=== PATIENT | male | born 1975 | race African-American/Black ===

== ENCOUNTER 2016-09-19 05:36 | Emergency (ER) | payer SELFPAY ==
[~2016-09-19] VITALS: Ht 193 cm; Wt 112.0 kg
[~2016-09-19 05:36] MED LIST: AUGM875T PO
[2016-09-19 05:39] VITALS: BP 153/93; PULSE 80; RESP 16; TEMP 98.2; O2SAT 97
[2016-09-19] MEDS ORDERED: HYDR-3535 PO (05:50)
[2016-09-19] MEDS ORDERED: SODIUM CHLOR 0.9% 1000 ML INJ 1,000 ML IV SCH (06:24)
[2016-09-19] MEDS ORDERED: SODIUM CHLORIDE 0.9% FLUSH 10 ML FLUSH IV FLUSH PRN (06:30)
[2016-09-19 06:46] LABS: AUTOMATED NEUTROPHIL # 6.8 TH/MM3 (1.8-7.7); BASOPHIL # 0.1 TH/MM3 (0-0.2); BASOPHIL % 0.9 % (0.0-2.0); EOSINOPHIL # 0.3 TH/MM3 (0-0.4); EOSINOPHIL % 2.7 % (0.0-4.0); HEMATOCRIT 40.4 % (39.0-51.0); HEMO FLAGS DIFF FINAL; LYMPH % 20.7 % (9.0-44.0); LYMPHOCYTE # 2.2 TH/MM3 (1.0-4.8); MEAN CELL VOLUME 74.9 FL (80.0-100.0); MEAN CORPUSCULAR HEMOGLOBIN 23.6 PG (27.0-34.0); MEAN CORPUSCULAR HGB CONC 31.5 % (32.0-36.0); MONO % 12.7 % (0.0-8.0); PLATELET COUNT 251 TH/MM3 (150-450); RED CELL DISTRIBUTION WIDTH 14.7 % (11.6-17.2); WHITE BLOOD COUNT 10.8 TH/MM3 (4.0-11.0)
[2016-09-19 06:50] LABS: BLOOD, URINE NEG (NEG); COMMENT (UR) CULT NOT INDICATED; CULTURE IF INDICATED CULT NOT INDICATED; GLUCOSE,URINE NEG (NEG); KETONE, URINE NEG (NEG); MUCUS URINE FEW /lpf (OCC); NITRITE,URINE NEG (NEG); PH, URINE 5.5 (5.0-8.5); SQUAMOUS EPITHELIAL CELL URINE <1 /hpf (0-5); URINE COLOR YELLOW (YELLW/STRAW)
--- NOTE | 2016-09-19 06:50 | PD ---
HPI Chief Complaint: Abdominal Pain Time Seen by Provider: 06:24 Travel History International Travel<30 days: No Contact w/Intl Traveler<30days: No Traveled to known affect area: No History of Present Illness HPI Patient is a 41-year-old male who presents to emergency with complaints of cramping and diarrhea. Reports that he has not been feeling well since yesterday, reports that his is sick with similar symptoms. Patient reports that he woke up around 2 AM this morning and had multiple episodes of diarrhea. Patient was concerned as he had bouts of bloody diarrhea - reports blood as bright red. Patient denies any history of colitis, diverticulitis in the past. Patient currently denies any medical problems, currently are not any anticoagulants. Patient reports no recent travels, doesn't know if he at anything that could have caused him to be sick. Patient with no fevers or chills. No chest pain or shortness breath at this time. PFSH Past Medical History Blood Disorders: No Endocrine: No Gastrointestinal Disorders: No Genitourinary: No Hypertension: Yes Immune Disorder: No Implanted Vascular Access Dvce: No Musculoskeletal: No Neurologic: No Psychiatric: Yes Reproductive: No Respiratory: No Past Surgical History Surgical History: No Previous Surgery Other Surgery: No Social History Alcohol Use: Yes (OCCASSIONAL EVERY OTHER DAY OR SO..) Tobacco Use: Yes (1/2 PPD) Substance Use: No Allergies-Medications (Allergen,Severity, Reaction): Coded Allergies: Morphine (Verified Allergy, Severe, 09/19/16) Reported Meds & Prescriptions Reported Meds & Active Scripts Active Reported Lortab (Hydrocodone-Acetaminophen) 10-325 Mg Tab 1 Tab PO Q6H PRN Review of Systems General / Constitutional: No: Fever Eyes: No: Visual changes HENT: No: Headaches Cardiovascular: No: Chest Pain or Discomfort Respiratory: No: Shortness of Breath Gastrointestinal: Positive: Diarrhea, Abdominal Pain, Hematochezia, No: Nausea Genitourinary: No: Dysuria Musculoskeletal: No: Pain Skin: No Rash Neurologic: No: Weakness Psychiatric: No: Depression Endocrine: No: Polydipsia Hematologic/Lymphatic: No: Easy Bruising Physical Exam Narrative GENERAL: NAD, Nontoxic SKIN: Focused skin assessment warm/dry. HEAD: Atraumatic. Normocephalic. EYES: Pupils equal and round. No scleral icterus. No injection or drainage. ENT: No nasal bleeding or discharge. Mucous membranes pink and moist. NECK: Trachea midline. No JVD. CARDIOVASCULAR: Regular rate and rhythm. No murmur appreciated. RESPIRATORY: No accessory muscle use. Clear to auscultation. Breath sounds equal bilaterally. GASTROINTESTINAL: Abdomen soft, non-tender, nondistended. Hepatic and splenic margins not palpable. Rectal exam performed with RN at bedside, patient with light brown, heme negative stool MUSCULOSKELETAL: No obvious deformities. No clubbing. No cyanosis. No edema. NEUROLOGICAL: Awake and alert. No obvious cranial nerve deficits. Motor grossly within normal limits. Normal speech. PSYCHIATRIC: Appropriate mood and affect; insight and judgment normal. Data Data Last Documented VS Vital Signs Date Time Temp Pulse Resp B/P Pulse Ox O2 Delivery O2 Flow Rate FiO2 09/19/16 05:39 98.2 80 16 153/93 97 Orders Complete Blood Count With Diff (09/19/16 06:24) Comprehensive Metabolic Panel (09/19/16 06:24) Lipase (09/19/16 06:24) Prothrombin Time / Inr (Pt) (09/19/16 06:24) Act Partial Throm Time (Ptt) (09/19/16 06:24) Urinalysis - C+S If Indicated (09/19/16 06:24) Iv Access Insert/Monitor (09/19/16 06:24) Sodium Chlor 0.9% 1000 Ml Inj (Ns 1000 M (09/19/16 06:24) Sodium Chloride 0.9% Flush (Ns Flush) (09/19/16 06:30) Sodium Chlor 0.9% 1000 Ml Inj (Ns 1000 M (09/19/16 07:00) Labs Laboratory Tests Test 09/19/16 06:32 White Blood Count 10.8 TH/MM3 Red Blood Count 5.40 MIL/MM3 Hemoglobin 12.7 GM/DL Hematocrit 40.4 % Mean Corpuscular Volume 74.9 FL Mean Corpuscular Hemoglobin 23.6 PG Mean Corpuscular Hemoglobin 31.5 % Concent Red Cell Distribution Width 14.7 % Platelet Count 251 TH/MM3 Mean Platelet Volume 7.7 FL Neutrophils (%) (Auto) 63.0 % Lymphocytes (%) (Auto) 20.7 % Monocytes (%) (Auto) 12.7 % Eosinophils (%) (Auto) 2.7 % Basophils (%) (Auto) 0.9 % Neutrophils # (Auto) 6.8 TH/MM3 Lymphocytes # (Auto) 2.2 TH/MM3 Monocytes # (Auto) 1.4 TH/MM3 Eosinophils # (Auto) 0.3 TH/MM3 Basophils # (Auto) 0.1 TH/MM3 CBC Comment DIFF FINAL Differential Comment Prothrombin Time 9.9 SEC Prothromb Time International 0.9 RATIO Ratio Activated Partial 29.6 SEC Thromboplast Time Urine Color YELLOW Urine Turbidity CLEAR Urine pH 5.5 Urine Specific [place] 1.025 Urine Protein TRACE mg/dL Urine Glucose (UA) NEG mg/dL Urine Ketones NEG mg/dL Urine Occult Blood NEG Urine Nitrite NEG Urine Bilirubin NEG Urine Urobilinogen LESS THAN 2.0 MG/DL Urine Leukocyte Esterase NEG Urine RBC LESS THAN 1 /hpf Urine WBC 1 /hpf Urine Squamous Epithelial <1 /hpf Cells Urine Mucus FEW /lpf Microscopic Urinalysis Comment CULT NOT INDICATED Sodium Level 140 MEQ/L Potassium Level 3.8 MEQ/L Chloride Level 109 MEQ/L Carbon Dioxide Level 25.2 MEQ/L Anion Gap 6 MEQ/L Blood Urea Nitrogen 12 MG/DL Creatinine 0.93 MG/DL Estimat Glomerular Filtration 109 ML/MIN Rate Random Glucose 83 MG/DL Calcium Level 8.7 MG/DL Total Bilirubin 0.1 MG/DL Aspartate Amino Transf 20 U/L (AST/SGOT) Alanine Aminotransferase 27 U/L (ALT/SGPT) Alkaline Phosphatase 106 U/L Total Protein 7.3 GM/DL Albumin 3.2 GM/DL Lipase 171 U/L [facility] Medical Decision Making Medical Screen Exam Complete: Yes Emergency Medical Condition: Yes Interpretation(s) Vital Signs Date Time Temp Pulse Resp B/P Pulse Ox O2 Delivery O2 Flow Rate FiO2 09/19/16 05:39 98.2 80 16 153/93 97 CBC & BMP Diagram 09/19/16 06:32 Differential Diagnosis Gastroenteritis, electrolyte abnormality, GI bleed, anemia Narrative Course Patient is a 41-year-old male who presents to emergency room with complaints of abdominal cramping and diarrhea which started around 2 AM this morning. Patient complains of bloody diarrhea, a rectal exam was performed, patient with heme negative light brown stools. Abdomen is soft, nt/nd, no peritoneal signs at this time. Patient was given IVF - reports that he is feeling much better after ivf. CBC & BMP Diagram 09/19/16 06:32 Vital Signs Date Time Temp Pulse Resp B/P Pulse Ox O2 Delivery O2 Flow Rate FiO2 09/19/16 05:39 98.2 80 16 153/93 97 VSS, labs reviewed. patient with most likely gastroenteritis as his has similar symptoms. Abdomen is soft, with no peritoneal signs. Signs and symptoms of when to return to the ER was reviewed with patient in detail. Diagnosis Primary Impression: Diarrhea Qualified Code: R19.7 - Diarrhea, unspecified type Additional Impression: Abdominal pain Patient Instructions: General Instructions Additional Instructions: Please drink plenty of fluids Return to ER as needed Return to ER if symptoms worsen or persist Please follow up with your primary care doctor in 24-48 hours Med/Other Pt SpecificInfo: Prescription(s) given Scripts Ondansetron Odt (Zofran Odt)4 Mg Tab4 Mg SL Q6HR PRN (Nausea/Vomiting) #20 TAB Ref 0 Prov:Shaila oMjica DO 09/19/16 Disposition: 01 DISCHARGE HOME Condition: Stable Shaila Mojica DO Sep 19, 2016 06:50
[2016-09-19 06:57] LABS: APTT (PATIENT) 29.6 SEC (24.3-30.1); INTERNATIONAL NORMALIZED RATIO 0.9 RATIO; PROTHROMBIN TIME - PATIENT 9.9 SEC (9.8-11.6)
[2016-09-19] MEDS ORDERED: SODIUM CHLOR 0.9% 1000 ML INJ 1,000 ML IV ONE (07:00)
[2016-09-19 07:11] LABS: ALT (GPT) 27 U/L (12-78); ANION GAP 6 MEQ/L (5-15); AST (GOT) 20 U/L (15-37); BICARBONATE 25.2 MEQ/L (21.0-32.0); BLOOD UREA NITROGEN 12 MG/DL (7-18); CHLORIDE 109 MEQ/L (98-107); GLOMERULAR FILTRATION RATE 109 ML/MIN (>89); POTASSIUM 3.8 MEQ/L (3.5-5.1); SODIUM (NA) 140 MEQ/L (136-145)
[2016-09-19 07:14] LABS: ALKALINE PHOSPHATASE 106 U/L (45-117); TOTAL BILIRUBIN ADULT 0.1 MG/DL (0.2-1.0)
[2016-09-19] MEDS ORDERED: ZOFR4TAB3 SL (07:29)
[2016-09-19 08:49] VITALS: BP 136/78
== END 2016-09-19 08:49 | disposition home or self-care (01) ==
LOC: NEPE 05:36
DX: R19.7 Diarrhea, unspecified (principal); R10.9 Unspecified abdominal pain; I10 Essential (primary) hypertension; F17.200 Nicotine dependence, unspecified, uncomplicated
CPT/HCPCS: 80053; 81001; 83690; 85025; 85610; 85730; 99283; J7030

== ENCOUNTER 2017-06-14 15:34 | Emergency (ER) | payer SELFPAY ==
[~2017-06-14] VITALS: Ht 193 cm; Wt 109.0 kg
[~2017-06-14 15:34] MED LIST changes: -AUGM875T PO; +HYDR-3535 PO; +ZOFR4TAB3 SL
[2017-06-14 15:38] VITALS: BP 147/78; PULSE 93; RESP 16; TEMP 98.1; O2SAT 95
--- NOTE | 2017-06-14 17:01 | PD ---
HPI Chief Complaint: Eye Problems/Injury Time Seen by Provider: 16:58 Travel History International Travel<30 days: No Contact w/Intl Traveler<30days: No Traveled to known affect area: No History of Present Illness HPI Patient woke up with red pinkish I, that was draining, clear drainage during the day. But at the time that he woke up he was yellowish crusting over one eye only. Patient denies any alleviating or aggravating factors. Patient denies any associated factors such as fever, rash, visual loss, headache, neck pain, neck stiffness, chest pain, back pain, abdominal pain. States allergy to morphine Past medical history significant for dental problems, and seizures, hypertension , diabetes, PFSH Past Medical History Blood Disorders: No Endocrine: No Gastrointestinal Disorders: No Genitourinary: No Hypertension: Yes Immune Disorder: No Implanted Vascular Access Dvce: No Musculoskeletal: No Neurologic: No Psychiatric: Yes Reproductive: No Respiratory: No Past Surgical History Other Surgery: No Social History Alcohol Use: Yes (OCCASSIONAL EVERY OTHER DAY OR SO..) Tobacco Use: Yes (1/2 PPD) Substance Use: No Allergies-Medications (Allergen,Severity, Reaction): Coded Allergies: morphine (Unverified Allergy, Severe, 11/04/16) Reported Meds & Prescriptions Reported Meds & Active Scripts Active Zofran Odt (Ondansetron Odt) 4 Mg Tab 4 Mg SL Q6HR PRN Reported Lortab (Hydrocodone-Acetaminophen) 10-325 Mg Tab 1 Tab PO Q6H PRN Review of Systems General / Constitutional: No: Fever Eyes: Positive: Other HENT: No: Headaches Cardiovascular: No: Chest Pain or Discomfort Respiratory: No: Shortness of Breath Gastrointestinal: No: Abdominal Pain Genitourinary: No: Dysuria Musculoskeletal: No: Pain Skin: No Rash Neurologic: No: Weakness Psychiatric: No: Depression Endocrine: No: Polydipsia Hematologic/Lymphatic: No: Easy Bruising Physical Exam Narrative GENERAL: SKIN: Warm and dry. HEAD: Atraumatic. Normocephalic. EYES: Pupils equal and round. No scleral icterus. No injection or drainage. ENT: No nasal bleeding or discharge. Mucous membranes pink and moist. NECK: Trachea midline. No JVD. CARDIOVASCULAR: Regular rate and rhythm. RESPIRATORY: No accessory muscle use. Clear to auscultation. Breath sounds equal bilaterally. GASTROINTESTINAL: Abdomen soft, non-tender, nondistended. MUSCULOSKELETAL: Extremities without clubbing, cyanosis, or edema. No obvious deformities. NEUROLOGICAL: Awake and alert. No obvious cranial nerve deficits. Motor grossly within normal limits. Five out of 5 muscle strength in the arms and legs. Normal speech. PSYCHIATRIC: Appropriate mood and affect; insight and judgment normal. Data Data Last Documented VS Vital Signs Date Time Temp Pulse Resp B/P (MAP) Pulse Ox O2 Delivery O2 Flow Rate FiO2 06/14/17 15:38 98.1 93 16 147/78 (101) 95 MDM Medical Decision Making Medical Screen Exam Complete: Yes Emergency Medical Condition: Yes Medical Record Reviewed: Yes Differential Diagnosis Bacterial versus viral conjunctivitis versus contact related illness Narrative Course After a thorough history and physical the patient only states that he has allergies to morphine which she developed hives. And he states that this developed relatively new onset an acutely. Clinically the findings are consistent with bacterial conjunctivitis. Diagnosis Primary Impression: Acute bacterial conjunctivitis of left eye Patient Instructions: Conjunctivitis (ED), General Instructions Scripts Bacitracin Opth Oint (Bacitracin Opth Oint) 500 Unit/Gm Oint 1 APPLIC EACH EYE BID for Infection, #1 TUBE 0 Refills Prov: Darinel Kumari MD 06/14/17 Disposition: 01 DISCHARGE HOME Condition: Stable Darinel Kumari MD Jun 14, 2017 17:01
[2017-06-14] MEDS ORDERED: BACIOIN6 EACH EYE (17:14)
== END 2017-06-14 17:43 | disposition home or self-care (01) ==
LOC: NEPD 15:34
DX: H10.32 Unspecified acute conjunctivitis, left eye (principal); I10 Essential (primary) hypertension; E11.9 Type 2 diabetes mellitus without complications; F17.200 Nicotine dependence, unspecified, uncomplicated
CPT/HCPCS: 99283